=== PATIENT | female | born 1970 | race Caucasian/White ===

== ENCOUNTER → 2016-12-10 | Outpatient (CLI) | payer MEDICAID ==
[~2016-12-10] MED LIST: DICL50TA2 PO; FLUT1DIS IH; HYDR-3144 PO; LEVO75TA PO; SIMV10TA3 PO; TRAM50TA2 PO; TRAZ50TA18 PO
== END | disposition home or self-care (01) ==
LOC: CFH 11:54
PROVIDERS: ATTEND Family Medicine
DX: Z12.31 Encounter for screening mammogram for malignant neoplasm of breast (principal)
CPT/HCPCS: G0202

== ENCOUNTER 2017-04-16 11:38 | Day surgery (SDC) | payer MEDICAID ==
[2017-04-14 15:16] LABS: HEMATOCRIT 40.7 % (34.6-47.8); HEMOGLOBIN 13.8 g/dL (11.7-16.4); WHITE BLOOD COUNT 7.7 x10^3/uL (3.4-10)
[~2017-04-16] VITALS: Ht 154.9 cm; Wt 85.0 kg
[~2017-04-16 11:38] MED LIST changes: +ALBUTEROL INH INH; +BUTA1CAP60 PO; +CHOL100015 PO; +FLUT9.9S NAS; +GABA600T2 PO; -HYDR-3144 PO; +HYDR-3245 PO; +IBUP-1223 PO; +LORA10TA75 PO; +MAGNESIUM PO
[2017-04-16 12:12] VITALS: BP 110/75
[2017-04-16] MEDS ORDERED: LACTATED RINGERS 1,000 ML IV SCH ×2 (12:15→16:01)
[2017-04-16 12:18] LABS: HCG UR OBC PASS
[2017-04-16] MEDS ORDERED: BOTOX INJECTION INJ (12:21)
[2017-04-16] MEDS ORDERED: SOLU MEDROL (12:21)
[2017-04-16] MEDS ORDERED: DIPH25CA61 PO (12:21)
[2017-04-16] MEDS ORDERED: HYDR25TA11 PO (12:21)
[2017-04-16] MEDS ORDERED: BUPIVACAINE/PF 0.25% ONE (12:58)
[2017-04-16] MEDS ORDERED: FENTANYL PF 100 MCG/2ML ONE ×3 (13:13→16:22)
[2017-04-16] MEDS ORDERED: MIDAZOLAM 1 MG/ML, 2ML ONE (13:13)
[2017-04-16] MEDS ORDERED: ONDANSETRON 2MG/ML, 2ML ONE (13:24)
[2017-04-16] MEDS ORDERED: CEFAZOLIN 1,000 MG ONE (13:24)
[2017-04-16] MEDS ORDERED: SUCCINYLCHOLINE 20 MG/ML, 10ML ONE (13:24)
[2017-04-16] MEDS ORDERED: PROPOFOL 10 MG/ML, 20ML ONE (13:24)
[2017-04-16] MEDS ORDERED: GLYCOPYRROLATE 0.2MG/1ML, 5ML ONE (13:24)
[2017-04-16] MEDS ORDERED: NEOSTIGMINE 1 MG/ML, 10ML ONE (13:24)
[2017-04-16] MEDS ORDERED: ROCURONIUM 10 MG/ML ONE (13:24)
[2017-04-16] MEDS ORDERED: FLUORESCEIN SODIUM 500 MG/5 ML ONE (15:34)
[2017-04-16] MEDS ORDERED: KETOROLAC 30 MG/1 ML ONE (16:22)
[2017-04-16] MEDS ORDERED: OXYcodone 5 MG/5 ML ORAL.SOL UDC ONE (16:23)
[2017-04-16] MEDS ORDERED: ONDANSETRON 2MG/ML, 2ML IVPush PRN ×2 (16:30)
[2017-04-16] MEDS ORDERED: HYDROmorphone 1 MG/ML, 1ML IV PRN (16:30)
[2017-04-16] MEDS ORDERED: EPHEDRINE 50 MG/ML, 1ML IVPush PRN (16:30)
[2017-04-16] MEDS ORDERED: ACETAMINOPHEN 325 MG TABLET PO PRN (16:30)
[2017-04-16] MEDS ORDERED: HYDROcodone/APAP 7.5-325MG/15ML UDC PO PRN (16:30)
[2017-04-16] MEDS ORDERED: KETOROLAC 30 MG/1 ML IVPush PRN (16:30)
[2017-04-16] MEDS ORDERED: PROMETHAZINE 25 MG/ML, 1ML IV PRN (16:30)
[2017-04-16] MEDS ORDERED: ALBUTEROL SULFATE 2.5 MG/3 ML NPPB PRN (16:30)
[2017-04-16] MEDS ORDERED: hydrALAzine 20 MG/ML, 1ML IV PRN (16:30)
[2017-04-16] MEDS ORDERED: OXYcodone 5 MG/5 ML ORAL.SOL UDC PO PRN ×2 (16:30)
[2017-04-16] MEDS ORDERED: FENTANYL PF 100 MCG/2ML IVPush PRN (16:30)
[2017-04-16] MEDS ORDERED: MIDAZOLAM 1 MG/ML, 2ML IV PRN (16:30)
[2017-04-16] MEDS ORDERED: FENTANYL PF 100 MCG/2ML IV PRN (16:30)
[2017-04-16] MEDS ORDERED: MEPERIDINE/PF 25MG/0.5ML IVPush PRN (16:30)
[2017-04-16] MEDS ORDERED: METOPROLOL 1 MG/ML, 5ML IV PRN (16:30)
[2017-04-16] MEDS ORDERED: LABETALOL 5MG/ML, 20ML IV PRN (16:30)
[2017-04-16] MEDS ORDERED: ACETAMINOPHEN 650 MG/20.3 ML UDC ONE (16:34)
[2017-04-16] MEDS ORDERED: SCOPOLAMINE PATCH, 1.5MG PATCH.TD72 TD ONE ×2 (17:17→17:30)
[2017-04-16] MEDS ORDERED: PROMETHAZINE 25 MG SUPP PR ONE (17:30)
== END 2017-04-16 20:26 | disposition home or self-care (01) ==
LOC: OUT 11:38 → 4NOR 20:12 → OUT 20:26
PROVIDERS: ATTEND Student in an Organized Health Care Education/Training Program
DX: N93.9 Abnormal uterine and vaginal bleeding, unspecified (principal); N94.6 Dysmenorrhea, unspecified; D25.9 Leiomyoma of uterus, unspecified; G43.909 Migraine, unspecified, not intractable, without status migrainosus; K59.00 Constipation, unspecified; E78.5 Hyperlipidemia, unspecified; E03.9 Hypothyroidism, unspecified; J45.909 Unspecified asthma, uncomplicated; Z98.890 Other specified postprocedural states
CPT/HCPCS: 36415; 52000; 58571; 81003; 81025; 82565; 85025; 86850; 86900; 87086; 88307; J0330; J0690; J1885; J2250; J2405; J2704; J2710; J3010; J3490; J7120